=== PATIENT | female | born 1975 | race African-American/Black ===

== ENCOUNTER 2019-08-13 19:43 | Emergency (ER) | payer MEDICAID, OTHER ==
[~2019-08-13] VITALS: Ht 170.2 cm; Wt 78.0 kg
[2019-08-13 20:03] VITALS: BP 111/78
--- NOTE | 2019-08-13 20:05 | NUR ---
ED Nurse Note: Patient walked in to ER c/o insect bite. Patient presented calm, with swolen left upper arm, warm to touch.
[2019-08-13] MEDS ORDERED: DIPHENHYDRAMINE25 M1 ORAL (20:12)
[2019-08-13] MEDS ORDERED: TRIAMCINOLONE A15 G1 TP (20:13)
[2019-08-13] MEDS ORDERED: CEPHALEXIN500 M1 ORAL (20:14)
[2019-08-13 20:29] VITALS: BP 111/78
--- NOTE | 2019-08-13 20:32 | NUR ---
ED Nurse Note: Pt cleared by health care Provider for discharge. DC instructions/prescription was given and explained to pt and verbalized understanding of teachings. All medical deviecs such as ID band removed. Pt is AAO x4, ambulatory and left with all personal belongings.
--- NOTE | 2019-08-13 20:44 | Emergency Room Report ---
History of Present Illness General Chief Complaint: Skin Rash/Abscess Source: Patient Present Illness HPI 44-year-old female accompanied by family complaining of bug bite on left upper arm and left ankle x3 days. Patient states that she woke up with symptoms. Very itchy, no pain. No aggravating/relieving factors. Denies fever, chills, numbness, weakness, SOB, chest pain. Patient scratching at area. Allergies: Coded Allergies: No Known Allergies (Unverified , 08/13/19) Patient History Past Medical History: none Past Surgical History: Social History: Denies: smoking, alcohol use, drug use Now: No Nursing Documentation-[facility] Past Medical History: No Stated History Review of Systems All Other Systems: negative except mentioned in HPI Physical Exam Vital Signs Date Time Temp Pulse Resp B/P (MAP) Pulse Ox O2 Delivery O2 Flow Rate FiO2 08/13/19 19:47 98.2 78 17 111/78 (89) 99 Room Air Sp02 EP Interpretation: reviewed, normal Respiratory: lungs clear, normal breath sounds, speaking full sentences Cardiovascular #1: regular rate, rhythm, no edema Musculoskeletal: normal inspection Neurologic: alert, oriented x3, responsive, motor strength/tone normal, sensory intact, speech normal Skin: other - 5x4 cm area of erythema with warm on lateral aspect of left upper arm, excoriated macule over lateral malleolus of left ankle Medical Decision Making PA Attestation This patient was seen under the direct supervision of Dr. Mcdonald, who directed all aspects of care and diagnostic interpretation. Diagnostic Impression: Primary Impression: Insect bite (nonvenomous), left ankle, initial encounter Additional Impression: Insect bite of left upper arm ER Course ED course HPI: 44-year-old female accompanied by family complaining of bug bite on left upper arm and left ankle x3 days. Patient states that she woke up with symptoms. Very itchy, no pain. No aggravating/relieving factors. Denies fever, chills, numbness, weakness, SOB, chest pain. Patient scratching at area. HPI & PE consistent with: Insect bite of left upper arm Insect bite of left ankle Orders/ Interventions: None Disposition: Avoid scratching or irritation to affect area. Take benadryl and use TMC ( written on prescription TMC 0.1% cream) as Rx. Start cephalexin if not improved in 2 days or if symptoms worsen. At this time pt. is stable for d/c to home. Will provide printed patient care instructions, and any necessary prescriptions. Care plan and follow up instructions have been discussed with the patient prior to discharge. Please note that this Emergency Department Report was dictated using [employer] burner operator technology software, occasionally this can lead to erroneous entry secondary to interpretation by the dictation equipment. Last Vital Signs Date Time Temp Pulse Resp B/P (MAP) Pulse Ox O2 Delivery O2 Flow Rate FiO2 08/13/19 20:29 98.2 17 111/78 99 Room Air 08/13/19 19:47 78 Status: unchanged Disposition: HOME, SELF-CARE Condition: Stable Scripts Cephalexin* (KEFLEX*) 500 Mg Tablet 500 MG ORAL EVERY 8 HOURS for 7 Days, #21 CAP Prov: Natividad Hyman 08/13/19 Triamcinolone Acetonide (Triamcinolone Acetonide 0.5% Cream*) 15 Gm Cream..g. 1 APPLIC TP BID, #30 GM Prov: Natividad Hyman 08/13/19 Diphenhydramine Hcl* (DIPHENHYDRAMINE HCL*) 25 Mg Capsule 25 MG ORAL Q6H PRN for Itching, #15 CAP 0 Refills Prov: Natividad Hyman 08/13/19 Patient Instructions: Insect Bite, [id number] Additional Instructions: Avoid scratching or irritation to affected area. Start oral antibiotics if not improved in 2 days. Followup with PCP in 2-3 days or return to ED if worsening symptoms, new symptoms, or sudden change in condition. Natividad Hyman Aug 13, 2019 20:44
== END 2019-08-13 20:32 | disposition home or self-care (01) ==
LOC: EMR 20:00
DX: S90.562A Insect bite (nonvenomous), left ankle, initial encounter (principal); S40.862A Insect bite (nonvenomous) of left upper arm, initial encounter; W57.XXXA Bitten or stung by nonvenomous insect and other nonvenomous arthropods, initial encounter; Y92.9 Unspecified place or not applicable
CPT/HCPCS: 99282

== ENCOUNTER 2019-09-24 03:10 | Emergency (ER) | payer MEDICAID ==
[~2019-09-24] VITALS: Ht 170.2 cm; Wt 75.7 kg
[~2019-09-24 03:10] MED LIST: CEPHALEXIN500 M1 ORAL; DIPHENHYDRAMINE25 M1 ORAL; TRIAMCINOLONE A15 G1 TP
[2019-09-24 03:45] VITALS: BP 108/74
[2019-09-24] MEDS ORDERED: POLYTRIM OP SOL10 ML OPHTHALM (03:50)
[2019-09-24] MEDS ORDERED: VALACYCLOVIR500 MG ORAL (03:50)
[2019-09-24] MEDS ORDERED: PREDNISONE10 MG ORAL (03:50)
--- NOTE | 2019-09-24 03:51 | Emergency Room Report ---
History of Present Illness General Chief Complaint: Eye Problems Source: Patient Present Illness HPI This is a 44-year-old female with no past medical history. She presents with chief complaint of rash to her right eye. Onset yesterday. She thinks it may be a bacterial infection since she has a cold and she has been rubbing her nose and touching her eyes. No fever chills. No nausea no vomiting. Does have itchiness in that area. No itchiness to the rest of the face or the scalp. No problem with her eyes. No vision problem. Minimal pain. Allergies: Coded Allergies: No Known Allergies (Unverified , 08/13/19) Patient History Past Medical History: none, see triage record, old chart reviewed Past Surgical History: none Pertinent Family History: none Social History: Denies: smoking Now: No Immunizations: other Reviewed Nursing Documentation: PMH: Agreed; PSxH: Agreed Nursing Documentation-PM Past Medical History: No Stated History Review of Systems Eye: Denies: eye pain, blurred vision ENT: Denies: ear pain, nose congestion, throat swelling Respiratory: Denies: cough, shortness of breath Cardiovascular: Denies: chest pain, palpitations Gastrointestinal: Denies: abdominal pain, diarrhea, nausea, vomiting Musculoskeletal: Denies: back pain, joint pain Skin: Denies: rash Neurological: Denies: headache, numbness Endocrine: Denies: increased thirst, increased urine Hematologic/Lymphatic: Denies: easy bruising All Other Systems: negative except mentioned in HPI Physical Exam Vital Signs Date Time Temp Pulse Resp B/P (MAP) Pulse Ox O2 Delivery O2 Flow Rate FiO2 09/24/19 03:31 98.2 89 16 108/74 (85) 98 Room Air Vitals normal Sp02 EP Interpretation: reviewed, normal General Appearance: well appearing, no apparent distress, alert Head: normocephalic, atraumatic Eyes: bilateral eye PERRL, bilateral eye EOMI ENT: hearing grossly normal, normal pharynx, other - Patient with vesicular lesion just underneath the right eye above the cheek in the V2 distribution. There is some puffiness to that area. No dendritic lesion. Neck: full range of motion, supple, no meningismus Respiratory: chest non-tender, lungs clear, normal breath sounds Cardiovascular #1: regular rate, rhythm, no murmur Gastrointestinal: normal bowel sounds, non tender, no mass, no organomegaly, no bruit, non-distended Musculoskeletal: back normal, normal range of motion, gait/station normal Psychiatric: mood/affect normal Medical Decision Making Diagnostic Impression: Primary Impression: Shingles of eyelid ER Course Presents with itching of the V2 distribution. No evidence of any Kylee Rhodes syndrome or dendritic lesion. No evidence of secondary bacterial infection. Will discharge home. Last Vital Signs Date Time Temp Pulse Resp B/P (MAP) Pulse Ox O2 Delivery O2 Flow Rate FiO2 09/24/19 03:31 98.2 89 16 108/74 (85) 98 Room Air Status: unchanged Disposition: HOME, SELF-CARE Condition: Stable Scripts Polymyxin/Trimethoprim (Polytrim Eye Drops) 10 Ml Drops 2 DROP OPHTHALM THREE TIMES A DAY, #1 EA Instill in affected eye for 7 days Prov: Francisco Javier Harris MD 09/24/19 Prednisone* (PREDNISONE*) 10 Mg Tablet 30 MG ORAL BID for 7 Days, TAB 0 Refills Prov: Francisco Javier Harris MD 09/24/19 Valacyclovir Hcl* (VALTREX*) 500 Mg Tablet 1000 MG ORAL TID for 7 Days, TAB Prov: Francisco Javier Harris MD 09/24/19 Referrals: [facility],REFERRING (PCP) Additional Instructions: Follow up with your doctor in 7 days. Return if symptoms worsen. Francisco Javier Harris MD Sep 24, 2019 03:51
[2019-09-24 03:55] VITALS: BP 110/70
== END 2019-09-24 03:55 | disposition home or self-care (01) ==
LOC: EMR 03:40
DX: B02.39 Other herpes zoster eye disease (principal)
CPT/HCPCS: 99282